=== PATIENT | female | born 1955 | race Caucasian/White ===

== ENCOUNTER 2017-01-14 13:32 | Inpatient (IN) ==
--- NOTE | 2017-01-14 11:55 | Discharge Summary ---
<Bekah Baumann Angely - Last Filed: 01/14/17 11:52> Date of Encounter: 01/14/17 - Discharge Diagnosis (1) Arthritis of right hip Priority: Primary Status: Acute (2) Asthma Status: Acute (3) HLD (hyperlipidemia) Priority: Secondary Status: Chronic Qualifiers: Hyperlipidemia type: unspecified Qualified Code(s): E78.5 - Hyperlipidemia , unspecified (4) HTN (hypertension) Priority: Secondary Status: Chronic Qualifiers: Hypertension type: essential hypertension Qualified Code(s): I10 - Essential (primary) hypertension (5) Obesity Priority: Secondary Status: Chronic Qualifiers: Obesity type: unspecified obesity type Obesity severity: unspecified obesity severity Qualified Code(s): E66.9 - Obesity, unspecified - Discharge Medications Home Medications: Albuterol Sulfate [Proair Hfa] 2 puff IH Q6H PRN 02/17/16 [History] Aspirin 81 mg PO DAILY 02/17/16 [History] Atorvastatin [Lipitor] 10 mg PO HS 02/17/16 [History] Calcium Carb,Cit/D3/Phytostrol [Citracal D + Heart Health Tab] 1 tab PO DAILY [History] Cetirizine HCl [Zyrtec] 10 mg PO DAILY 02/17/16 [History] FLUoxetine HCl [Sarafem] 40 mg PO BID 02/17/16 [History] Fluticasone Propionate [Flovent Hfa] 2 puff IH BID MDD 110 02/17/16 [History] Metoprolol [Lopressor] 25 mg PO BID 02/17/16 [History] Montelukast [Singulair] 10 mg PO HS 02/17/16 [History] Multivit with Calcium,Iron,Min [One Daily Women's] 1 tab PO DAILY 02/17/16 [ History] Nitroglycerin [Nitrostat] 0.4 mg SL Q5M PRN 02/17/16 [History] Omeprazole [PriLOSEC] 20 mg PO DAILY 02/17/16 [History] Aspirin Enteric Coated [Aspirin EC] 325 mg PO DAILY #21 tablet. 01/14/17 [Rx] OxyCODONE Immed Rel [Roxicodone 5 MG] 5 - 10 mg PO Q6HR PRN #40 tablet 01/14/17 [Rx] Allergies/Adverse Reactions: Allergies Amoxicillin Adverse Reaction (Verified 02/17/16 10:55) Confusion meperidine [From Demerol] Adverse Reaction (Verified 01/04/16 09:53) Itching Primary care physician: Linda Joshi CNP - Patient Status Disposition: Transfer Inpatient Rehab Fac Condition: Good - Discharge Instructions Follow Up With: Ant Jordan MD [Partnered Physician] - 02/13/17 5:40 pm Bekah Baumann PAC [Physician Pharmacy Benefits Coordinator] - 01/24/17 2:30 pm Paris Rutherford MD [Partnered Physician] - 03/06/17 8:15 am Linda Joshi CNP [Primary Care Provider] - 06/04/17 1:15 pm - Hospital Course Hospital course: Ms. Peacock is a 61 year old female - Time Spent with Patient Total time spent providing and/or coordinating discharge services: <Ant Jordan - Last Filed: 01/17/17 08:15> Date of Encounter: 01/17/17 Time of Encounter: 08:14 - Discharge Diagnosis (1) Arthritis of right hip Priority: Primary Status: Acute (2) Asthma Priority: Secondary Status: Chronic Qualifiers: Asthma severity: unspecified severity Asthma complication type: uncomplicated Qualified Code(s): J45.909 - Unspecified asthma, uncomplicated (3) HLD (hyperlipidemia) Priority: Secondary Status: Chronic Qualifiers: Hyperlipidemia type: unspecified Qualified Code(s): E78.5 - Hyperlipidemia , unspecified (4) HTN (hypertension) Priority: Secondary Status: Chronic Qualifiers: Hypertension type: essential hypertension Qualified Code(s): I10 - Essential (primary) hypertension (5) Obesity Priority: Secondary Status: Chronic Qualifiers: Obesity type: unspecified obesity type Obesity severity: unspecified obesity severity Qualified Code(s): E66.9 - Obesity, unspecified Primary care physician: Linda Joshi CNP - Patient Status Functional capacity at discharge: uses cane/walker Overall status at discharge: patient is progressing back to baseline - Hospital Course Hospital course: Ms. Peacock is a 61 year old female The patient had an uneventful postoperative course. They received antibiotics and physical therapy and were discharged in stable condition. There will follow -up in the office in 2 weeks. Aspirin DVT prophylaxis - Time Spent with Patient Total time spent providing and/or coordinating discharge services:
--- NOTE | 2017-01-14 13:46 | History & Physical Report ---
Date of Encounter: 01/14/17 Time of Encounter: 13:45 24 Hour HP Update - Instructions Instructions: If the History and Physical is less than 30 days old and was completed prior to A.M. admission and or procedure and has NOT been updated on calendar day of procedure please complete this update prior to performing procedure. - Update Patient reports changes in Medical Condition: No Changes in examination, assessment, or condition: No Changes in Medication: No Preop tests/diagnostics Reviewed: Yes Surgery Remains Indicated: Yes Consent for Planned Operative Procedure(s) Verified: Yes - Pre-Operative Checklist Preoperative Checklist Indicated: No Prophylactic Antibiotic Ordered: Yes Is VTE Prophylaxis Indicated?: Yes
[2017-01-14] MEDS ORDERED: Albuterol 2.5 MG/3 ML NEBULIZER IH ONE (13:49)
[2017-01-14] MEDS ORDERED: CeFAZolin Pre 2,000 MG/100 ML 2,000 MG/100 ML BAG IVPB ONE (13:49)
[2017-01-14] MEDS ORDERED: Ringers Solution, Lactated 1,000 ML IVC SCH ×2 (14:00→18:23)
--- NOTE | 2017-01-14 14:22 | Anesthesia Evaluation PreOp ---
Date of Encounter: 01/14/17 Time of Encounter: 14:20 - Past History Planned Operation: r eber Cardiac History: HTN, Hyperlipidemia, Other (cad. LHC: ef 60, mild cad (03/01). 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 Other Medical History: GERD Anesthesia History: No Prior Anesthetic Complications, Past Anesthesia (r breast cyst, t&a, cscope) Alcohol Use: none Drug use: none Medications and Allergies Albuterol Sulfate [Proair Hfa] 2 puff IH Q6H PRN 02/17/16 [History] Aspirin 81 mg PO DAILY 02/17/16 [History] Atorvastatin [Lipitor] 10 mg PO HS 02/17/16 [History] Calcium Carb,Cit/D3/Phytostrol [Citracal D + Heart Health Tab] 1 tab PO DAILY [History] Cetirizine HCl [Zyrtec] 10 mg PO DAILY 02/17/16 [History] FLUoxetine HCl [Sarafem] 20 mg PO BID 02/17/16 [History] Fluticasone Propionate [Flovent Hfa] 2 puff IH BID MDD 110 02/17/16 [History] Metoprolol [Lopressor] 25 mg PO BID 02/17/16 [History] Montelukast [Singulair] 10 mg PO DAILY 02/17/16 [History] Multivit with Calcium,Iron,Min [One Daily Women's] 1 tab PO DAILY 02/17/16 [ History] Nitroglycerin [Nitrostat] 0.4 mg SL Q5M PRN 02/17/16 [History] Omeprazole [PriLOSEC] 20 mg PO DAILY 02/17/16 [History] Aspirin Enteric Coated [Aspirin EC] 325 mg PO DAILY #21 tablet. 01/14/17 [Rx] OxyCODONE Immed Rel [Roxicodone 5 MG] 5 - 10 mg PO Q6HR PRN #40 tablet 01/14/17 [Rx] Allergies Amoxicillin Adverse Reaction (Verified 02/17/16 10:55) Confusion meperidine [From Demerol] Adverse Reaction (Verified 01/04/16 09:53) Itching - Meds/Allergy Pre-op Review Medications Reviewed: Yes Allergies Reviewed: Yes Beta Blockers on Current Med List: Yes If Beta Blockers taken, Date/Time (Last Dose taken): metoprolol at 1100 Anesthesia Results - Labs Laboratory Tests 12/31/16 12/31/16 12/31/16 13:33 13:33 13:47 Hgb 13.1 Hct 41.1 Plt Count 307 PT 11.5 INR 1.1 APTT 30.9 Sodium 139 Potassium 4.6 H Creatinine 1.06 - Imaging EKG: report reviewed (sb) Anesthesia Exam O2 Sat Height 1.65 m Height 1.65 m Weight 92.079 kg Weight 92.079 kg O2 Sat by Pulse Oximetry 96 Vital Signs Temp Pulse Resp BP Pulse Ox 98.1 F 57 18 123/78 96 01/14/17 13:52 01/14/17 13:52 01/14/17 13:52 01/14/17 13:52 01/14/17 13:52 Height: 1.65 Weight: 92 NPO (# of Hours): >8 - HEENT Pupil (Motor): Pupils equal, EOMI Mallampati: III Teeth: Normal Oral Opening: Greater than 3 (good underbite) - 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
[2017-01-14] MEDS ORDERED: *HR* Propofol 200 MG/20 ML VIAL IVP ONE (14:51)
[2017-01-14] MEDS ORDERED: *HR* FentaNYL (PF) 100 MCG/2 ML VIAL ONE (14:51)
[2017-01-14] MEDS ORDERED: *HR* Midazolam HCl 2 MG/2 ML VIAL ONE (14:51)
[2017-01-14] MEDS ORDERED: Ondansetron 4 MG/2 ML VIAL ONE (14:52)
[2017-01-14] MEDS ORDERED: Dexamethasone 4 MG/ML VIAL ONE (14:52)
[2017-01-14] MEDS ORDERED: Lidocaine -MPF 2% 2 ML VIAL ONE (14:52)
[2017-01-14] MEDS ORDERED: Bupivacaine/Clonidine Syringe 1 EACH SYRINGE ONE (15:50)
--- NOTE | 2017-01-14 16:20 | Anesthesia Procedures ---
Date of Encounter: 01/14/17 Time of Encounter: 16:18 Procedures: Anesthesia - Nerve Block Procedure Date: 01/14/17 Time: 16:18 Allergies/Adv Reactions: amoxicillin, meperidine Pre-op Diagnosis: r hip oa Surgical Procedure: r eber Checklist: Correct Patient Identifier, Correct procedure, History checked Correct side: Right Blood Thinner: No Monitor Applied: EKG, BP, Pulse Oximetry Indication: Post Op Analgesia (request per dr gleason) Pre-op Neuro Deficits: No Block Type: Other (fascia iliaca) Catheter placed: No Sterile Technique: Yes Ultrasound used: No Blood on Needle Aspiration: No Smooth Injection of Local: Yes Pain with Injection of Local: No Prep: Chlorhexadine Needle: 22 x 50 mm Stimuplex Local: 0.25% Bupivicaine w/Clonidine 20 mcg/cc Volume (cc): 40 Number of Attempts: 1 Complications: None/effective block Vitals: see or note, block performed post indn
--- NOTE | 2017-01-14 16:49 | Orthopedic Operative Note ---
Date of procedure: 01/14/17 Pre-op diagnosis: Right Hip arthritis Post-op diagnosis: same Procedure: Procedure: Right Total Hip Replacment Estimated blood loss: 300 cc Hardware: Biomet DM Cup: 50 G7 fin cup Femoral size 7 echo full profile lateralized stem Head: +3 head with Letty Procedural Notes: Grade 4 arthritic changes femoral head acetabular socket Operative procedure: The patient was brought to the operating room and placed on the operating room table. After general anesthesia was administered the patient was placed in the lateral decubitus position with the operative leg up. All pressure points were padded appropriately and the head was stabilized in the neutral position. The operative extremity was prepped and draped in the sterile surgical fashion patient received IV antibiotic prior to skin incision. A standard posterior approach is made to the operative hip, the incision was made through the skin and subcutaneous tissue hemostasis was obtained with Bovie cautery. Using careful sharp dissection the fascia was identified and incised exposing the external rotators. The external rotators were released off the greater trochanter and tagged with #2 FiberWire suture. The capsule was T'd open and the hip was brought into internal rotation. Patient noted to have grade 4 arthritic changes femoral head. The femoral neck cut was made at the appropriate level. An anterior capsulotomy was performed for the anterior retractor. Soft tissues removed from the acetabulum. Patient noted to have grade 4 arthritic changes acetabulum. Acetabulum was first reamed medially, and then reamed in 15 degrees of anteversion and 45 degrees off the horizontal. It was reamed up to the appropriate size of the The appropriate-sized 50 acetabular cup was impacted in place in 15 degrees of anteversion and 45 degrees off the horizontal. This had good fit and fixation. The hip was brought back in to internal rotation and prepared with the box turner followed by the canal finder followed by broaching process in 20 degrees anteversion. It was broached up to the appropriate size 7 The femoral implant was impacted in place in 20 degrees of anteversion. Trial reduction found the hip to be stable with a +3 head and Letty. The trials were removed and the real implants were impacted in place. The hip was reduced, patient had apparent equal leg lengths. The hip had excellent stability with forward flexion to 90 degrees adduction of 30 degrees and internal rotation of 60 degrees. The hip had no shuck. The hips after 2 minutes with a Betadine saline solution. It was irrigated out with 2 L of pulse irrigation. The external rotators were reattached to drill holes in the greater trochanter. Fascia was closed with a running #2 PDS suture. The deep tissue was irrigated and closed deep with #1 PDS suture superficially with 0 PDS suture and skin was closed with Dermabond and skin teresa. The patient was placed in a sterile dressing and abduction pillow. The patient was extubated and transferred to the recovery room in stable condition. Anesthesia: LOLA Surgeon: Ant Jordan Human Resources Training Manager: Christen Kerr Condition: stable Disposition: PACU
[2017-01-14] MEDS ORDERED: *HR* Morphine 10 MG/ML VIAL ONE (17:10)
[2017-01-14] MEDS: *HR* HYDROmorphone (PF) 1 MG/ML SYRINGE IVP PRN ×2 (17:35→17:43)
[2017-01-14] MEDS ORDERED: *HR* Enoxaparin 30 MG/0.3 ML SYRINGE SQ SCH (18:00)
[2017-01-14 18:01] LABS: Hematocrit 37.9 % (35.3-44.9); Hemoglobin 12.5 g/dL (11.5-15.4)
--- NOTE | 2017-01-14 18:01 | Anesthesia Evaluation Post Op ---
Date of Encounter: 01/14/17 Time of Encounter: 18:01 - Vital Signs Vital Signs: Vital Signs/O2 Sat/Glucose, Most Current Temp Pulse Resp BP Pulse Ox 01/14/17 17:50 97.9 F 60 12 146/63 96 01/14/17 17:40 67 18 140/67 97 01/14/17 17:30 66 18 145/75 95 01/14/17 17:20 97.2 F L 71 18 141/67 98 - Lungs Lungs: Clear Ascult./Percussion - Airway Airway: Non-obstructed - Cardiovascular Regular Rate - Mental Status Mental Status: Alert & Oriented, Answers Appropriately - Pain Pain Scale: 2 - Nausea Vomiting Nausea Vomiting: Not Present - Hydration Hydration: Tolerates oral liquids - Discharge PostOp Status: Transfer Patient to floor
[2017-01-14] MEDS ORDERED: Temazepam 15 MG CAPSULE PO PRN (18:23)
[2017-01-14] MEDS ORDERED: Ondansetron 4 MG/2 ML VIAL IVP PRN (18:23)
[2017-01-14] MEDS ORDERED: MOM Conc 10 ML UD.LIQ PO PRN (18:23)
[2017-01-14] MEDS ORDERED: Sennosides 8.6 MG TABLET PO PRN (18:23)
[2017-01-14] MEDS ORDERED: Nitroglycerin 0.4 MG TAB.SUBL SL PRN (18:23)
[2017-01-14] MEDS ORDERED: Naloxone 0.4 MG/ML INJ IVP PRN (18:23)
[2017-01-14] MEDS: FLUoxetine 20 MG CAPSULE PO SCH (20:20)
[2017-01-14] MEDS: Ascorbic Acid 500 MG TABLET PO SCH (20:20)
[2017-01-14] MEDS: *HR* OxyCODONE Immed Rel 5 MG TABLET PO PRN (20:21)
[2017-01-14] MEDS: (Fluticasone Propionate [Flovent Hfa] 2 PUFF) IH SCH (20:22)
[2017-01-14] MEDS: ceFAZolin 2,000 MG in D5% in Water 100 ML IVPB SCH (22:54)
[2017-01-15] MEDS: *HR* OxyCODONE Immed Rel 5 MG TABLET PO PRN ×4 (01:19→21:56)
[2017-01-15] MEDS: *HR* HYDROmorphone (PF) 1 MG/ML SYRINGE IVP PRN ×2 (03:19→07:54)
[2017-01-15] MEDS: ceFAZolin 2,000 MG in D5% in Water 100 ML IVPB SCH (05:28)
[2017-01-15] MEDS: *HR* Enoxaparin 30 MG/0.3 ML SYRINGE SQ SCH ×2 (05:29→17:33)
[2017-01-15 05:44] LABS: Hemoglobin 11.9 g/dL (11.5-15.4)
--- NOTE | 2017-01-15 06:48 | Orthopedics Progress Note ---
Date of Encounter: 01/15/17 Time of Encounter: 06:48 - Assessment and Plan (1) Arthritis of right hip Current Visit: Yes Status: Acute (2) Asthma Current Visit: Yes Status: Chronic Qualifiers: Asthma severity: unspecified severity Asthma complication type: uncomplicated Qualified Code(s): J45.909 - Unspecified asthma, uncomplicated (3) HLD (hyperlipidemia) Current Visit: Yes Status: Chronic Qualifiers: Hyperlipidemia type: unspecified Qualified Code(s): E78.5 - Hyperlipidemia , unspecified (4) HTN (hypertension) Current Visit: Yes Status: Chronic Qualifiers: Hypertension type: essential hypertension Qualified Code(s): I10 - Essential (primary) hypertension (5) Obesity Current Visit: Yes Status: Chronic Qualifiers: Obesity type: unspecified obesity type Obesity severity: unspecified obesity severity Qualified Code(s): E66.9 - Obesity, unspecified Subjective Interval history: Patient was seen this morning doing well without complaints. Afebrile vital signs stable. Operative extremity: Neurovascularly intact Dressing clean dry and intact Calves nontender Assessment and plan: Continue with postoperative care Hematocrit 37 Objective Vital signs: Vital Signs Temp Pulse Resp BP Pulse Ox 01/15/17 03:24 98.3 F 55 18 125/66 95 01/15/17 00:17 97.9 F 60 17 119/70 92 01/14/17 20:56 97.7 F 59 16 132/74 99 01/14/17 19:45 97.6 F 59 18 129/64 97 01/14/17 18:47 97.6 F 56 11 129/74 97 01/14/17 18:24 97.8 F 72 14 134/68 94 01/14/17 18:00 61 12 153/76 97 01/14/17 17:50 97.9 F 60 12 146/63 96 01/14/17 17:40 67 18 140/67 97 01/14/17 17:30 66 18 145/75 95 01/14/17 17:20 97.2 F L 71 18 141/67 98 01/14/17 13:52 98.1 F 57 18 123/78 96 Intake and Output 01/14/17 01/14/17 01/15/17 15:59 23:59 07:59 Intake Total 100 / 100 Output Total 350 / 350 700 / 700 Balance -350 / -350 -600 / -600 Intake: IV Fluids 100 / 100 Ancef 2,000 MG In 100 / 100 Dextrose 5% 100 ML @ 200 mls/hr IVPB Q8H [facility] Rx#: [id number] Output: Urine 700 / 700 Estimated Blood Loss 350 / 350 Other: Weight 92.079 kg - Labs CBC & BMP: 01/15/17 05:37 - VTE Documentation of Mechanical Device: Venous foot pump, device Consult Discharge Plan - Plan Referrals: Linda Joshi [employer]EL[employer] [Primary Care Provider] -
[2017-01-15 07:36] LABS: BUN/Creatinine Ratio 14 (6-26); Blood Urea Nitrogen 12 mg/dL (7-20); Calcium 8.9 mg/dL (8.6-10.8); Carbon Dioxide 26 mEq/L (19-29); Chloride 100 mEq/L (98-109); Glucose 127 mg/dL (70-99); Osmolality,Calculated 281 (280-300); Potassium 4.2 mEq/L (3.5-4.5); Sodium 135 mEq/L (136-145); eGFR For African Americans > 60 (> 60); eGFR For Non-African Americans > 60 (> 60)
[2017-01-15] MEDS: FLUoxetine 20 MG CAPSULE PO SCH ×2 (07:52→21:55)
[2017-01-15] MEDS: Multivit/Ca/Min/Fe/FA 1 TAB TABLET PO SCH (07:52)
[2017-01-15] MEDS: Loratadine 10 MG TABLET PO SCH (07:52)
[2017-01-15] MEDS: Ascorbic Acid 500 MG TABLET PO SCH ×2 (07:53→17:33)
[2017-01-15] MEDS ORDERED: Multivit/Ca/Min/Fe/FA 1 TAB TABLET PO SCH (09:00)
[2017-01-15] MEDS ORDERED: Aspirin 81 MG TAB.CHEW PO SCH ×2 (09:00→21:00)
[2017-01-15] MEDS: PHYTOSTROL PO SCH (11:37)
[2017-01-15] MEDS: (Fluticasone Propionate [Flovent Hfa] 2 PUFF) IH SCH ×2 (11:37→21:57)
[2017-01-15] MEDS: CALCIUM CARB CIT PO SCH (11:37)
[2017-01-15] MEDS: D3 PO SCH (11:37)
[2017-01-15] MEDS: Aspirin 81 MG TAB.CHEW PO SCH (21:55)
[2017-01-16 05:32] LABS: Hematocrit 33.2 % (35.3-44.9); Hemoglobin 11.5 g/dL (11.5-15.4)
[2017-01-16 05:43] LABS: BUN/Creatinine Ratio 18 (6-26); Blood Urea Nitrogen 14 mg/dL (7-20); Calcium 8.9 mg/dL (8.6-10.8); Carbon Dioxide 29 mEq/L (19-29); Chloride 100 mEq/L (98-109); Glucose 116 mg/dL (70-99); Osmolality,Calculated 281 (280-300); Potassium 3.9 mEq/L (3.5-4.5); Sodium 135 mEq/L (136-145); eGFR For African Americans > 60 (> 60); eGFR For Non-African Americans > 60 (> 60)
[2017-01-16] MEDS: *HR* Enoxaparin 30 MG/0.3 ML SYRINGE SQ SCH ×2 (06:12→16:34)
[2017-01-16] MEDS: *HR* OxyCODONE Immed Rel 5 MG TABLET PO PRN ×3 (06:20→20:37)
--- NOTE | 2017-01-16 08:04 | Orthopedics Progress Note ---
Date of Encounter: 01/16/17 Time of Encounter: 08:04 - Assessment and Plan (1) Arthritis of right hip Current Visit: Yes Status: Acute (2) Asthma Current Visit: Yes Status: Chronic Qualifiers: Asthma severity: unspecified severity Asthma complication type: uncomplicated Qualified Code(s): J45.909 - Unspecified asthma, uncomplicated (3) HLD (hyperlipidemia) Current Visit: Yes Status: Chronic Qualifiers: Hyperlipidemia type: unspecified Qualified Code(s): E78.5 - Hyperlipidemia , unspecified (4) HTN (hypertension) Current Visit: Yes Status: Chronic Qualifiers: Hypertension type: essential hypertension Qualified Code(s): I10 - Essential (primary) hypertension (5) Obesity Current Visit: Yes Status: Chronic Qualifiers: Obesity type: unspecified obesity type Obesity severity: unspecified obesity severity Qualified Code(s): E66.9 - Obesity, unspecified Subjective Interval history: Patient was seen this morning doing well without complaints. Afebrile vital signs stable. Operative extremity: Neurovascularly intact Dressing clean dry and intact Calves nontender Assessment and plan: Continue with postoperative care Hematocrit 33 Objective Vital signs: Vital Signs Temp Pulse Resp BP Pulse Ox 01/16/17 06:55 98.3 F 56 14 121/61 93 01/16/17 00:27 99.0 F 73 16 112/64 92 01/15/17 19:09 98.6 F 64 16 121/72 92 01/15/17 14:46 98.2 F 67 16 115/57 92 01/15/17 11:49 97.5 F L 60 16 105/55 92 01/15/17 08:16 91 Intake and Output 01/15/17 01/16/17 01/16/17 23:59 07:59 15:59 Intake Total 1040 / 1040 250 / 250 Output Total 600 / 600 500 / 500 Balance 440 / 440 -250 / -250 Intake: Oral 1040 / 1040 250 / 250 Output: Urine 600 / 600 500 / 500 Other: Meal Dinner Percent of Meal Consumed 100% - Labs CBC & BMP: 01/16/17 04:28 01/16/17 04:28 Labs: Abnormal lab results Hct 33.2 % (35.3-44.9) L 01/16/17 04:28 Sodium 135 mEq/L (136-145) L 01/16/17 04:28 Glucose 116 mg/dL (70-99) H 01/16/17 04:28 - VTE Documentation of Mechanical Device: Intermittent pneumatic compression device Consult Discharge Plan - Plan Referrals: Linda Joshi CNP [Primary Care Provider] -
[2017-01-16] MEDS: Multivit/Ca/Min/Fe/FA 1 TAB TABLET PO SCH (08:25)
[2017-01-16] MEDS: Ascorbic Acid 500 MG TABLET PO SCH ×2 (08:25→16:34)
[2017-01-16] MEDS: FLUoxetine 20 MG CAPSULE PO SCH ×2 (08:26→20:32)
[2017-01-16] MEDS: CALCIUM CARB CIT PO SCH (08:26)
[2017-01-16] MEDS: PHYTOSTROL PO SCH (08:26)
[2017-01-16] MEDS: Loratadine 10 MG TABLET PO SCH (08:26)
[2017-01-16] MEDS: D3 PO SCH (08:26)
[2017-01-16] MEDS: (Fluticasone Propionate [Flovent Hfa] 2 PUFF) IH SCH ×2 (08:26→20:33)
[2017-01-16] MEDS: Aspirin 81 MG TAB.CHEW PO SCH (20:32)
[2017-01-17] MEDS: *HR* OxyCODONE Immed Rel 5 MG TABLET PO PRN ×2 (05:12→12:01)
[2017-01-17] MEDS: *HR* Enoxaparin 30 MG/0.3 ML SYRINGE SQ SCH (05:13)
[2017-01-17] MEDS: FLUoxetine 20 MG CAPSULE PO SCH (08:00)
[2017-01-17] MEDS: Ascorbic Acid 500 MG TABLET PO SCH (08:01)
[2017-01-17] MEDS: Multivit/Ca/Min/Fe/FA 1 TAB TABLET PO SCH (08:01)
[2017-01-17] MEDS: Loratadine 10 MG TABLET PO SCH (08:01)
--- NOTE | 2017-01-17 08:15 | Orthopedics Progress Note ---
Date of Encounter: 01/17/17 Time of Encounter: 08:15 - Assessment and Plan (1) Arthritis of right hip Current Visit: Yes Status: Acute (2) Asthma Current Visit: Yes Status: Chronic Qualifiers: Asthma severity: unspecified severity Asthma complication type: uncomplicated Qualified Code(s): J45.909 - Unspecified asthma, uncomplicated (3) HLD (hyperlipidemia) Current Visit: Yes Status: Chronic Qualifiers: Hyperlipidemia type: unspecified Qualified Code(s): E78.5 - Hyperlipidemia , unspecified (4) HTN (hypertension) Current Visit: Yes Status: Chronic Qualifiers: Hypertension type: essential hypertension Qualified Code(s): I10 - Essential (primary) hypertension (5) Obesity Current Visit: Yes Status: Chronic Qualifiers: Obesity type: unspecified obesity type Obesity severity: unspecified obesity severity Qualified Code(s): E66.9 - Obesity, unspecified Subjective Interval history: Patient was seen this morning doing well without complaints. Afebrile vital signs stable. Operative extremity: Neurovascularly intact Dressing clean dry and intact Calves nontender Assessment and plan: Continue with postoperative care Discharge today Objective Vital signs: Vital Signs Temp Pulse Resp BP Pulse Ox 01/17/17 06:51 98.3 F 66 18 121/72 96 01/17/17 00:33 97.8 F 66 16 132/70 95 01/16/17 21:32 98.1 F 68 16 164/77 96 01/16/17 15:40 98.7 F 66 14 136/73 93 01/16/17 12:10 98.4 F 64 16 129/77 94 Intake and Output 01/16/17 01/17/17 01/17/17 23:59 07:59 15:59 Intake Total 375 / 375 150 / 150 Output Total 925 / 925 1155 / 1155 Balance -550 / -550 -1005 / -1005 Intake: Oral 375 / 375 150 / 150 Output: Urine 925 / 925 1155 / 1155 - Labs CBC & BMP: 01/16/17 04:28 01/16/17 04:28 Labs: Abnormal lab results Hct 33.2 % (35.3-44.9) L 01/16/17 04:28 Sodium 135 mEq/L (136-145) L 01/16/17 04:28 Glucose 116 mg/dL (70-99) H 01/16/17 04:28 - VTE Documentation of Mechanical Device: Venous foot pump, device Consult Discharge Plan - Plan Referrals: Ant Jordan MD [Partnered Physician] - 02/13/17 5:40 pm Bekah Baumann, PAC [Physician Project Program Manager] - 01/24/17 2:30 pm Paris Rutherford MD [Partnered Physician] - 03/06/17 8:15 am Joshi,Linda Au CNP [Primary Care Provider] - 06/04/17 1:15 pm
[2017-01-17] MEDS: PHYTOSTROL PO SCH (09:13)
[2017-01-17] MEDS: D3 PO SCH (09:13)
[2017-01-17] MEDS: CALCIUM CARB CIT PO SCH (09:13)
[2017-01-17] MEDS: (Fluticasone Propionate [Flovent Hfa] 2 PUFF) IH SCH (09:13)
[2017-01-17 11:13] VITALS: BP 117/61
== END 2017-01-17 15:42 | DRG 470 ==
LOC: SAMDAY 13:32 → 3NENU 18:32
PROVIDERS: ADMIT Orthopaedic Surgery; ATTEND Orthopaedic Surgery